=== PATIENT | female | born 1970 | race Caucasian/White ===

== ENCOUNTER 2016-11-27 08:34 | Day surgery (SDC) | payer OTHER ==
--- NOTE | 2016-11-27 07:09 | History and Physical Report ---
DATE OF EVALUATION: 11/27/2016. CHIEF COMPLAINT AND HISTORY OF CHIEF COMPLAINT: This patient presents with a history of intractable cervical radiculitis. On 10/28/2016 a spinal cord stimulator trial was conducted with up to 75 to 85% pain control. Due to the failure of all therapies and the success of the trial she presents today for implantation of a permanent system. PAST MEDICAL HISTORY: Hypertension, cerebrovascular disease, coronary artery disease. REVIEW OF SYSTEMS: The patient is appropriate and in no acute distress. The remainder of the systems review shows glasses, headaches, blood pressure problems, reflux, degenerative arthritis, depression. SOCIAL HISTORY: Noncontributory. FAMILY HISTORY: Cancer, hypertension. PAST SURGICAL HISTORY: None identified. ALLERGIES: To be provided. MEDICATIONS ON ADMISSION: To be provided. PHYSICAL EXAMINATION: General: Height and weight are not known. Vital Signs: Unavailable. HEENT: Within normal limits. Lungs: Clear. Heart: Regular rate and rhythm. Abdomen: Nontender. Musculoskeletal: Examination of the musculoskeletal system shows diffuse tenderness throughout the cervical spine extending into both shoulders and arms. Grasp and care attendant strength is intact. Neurologic: Cranial nerves are intact. IMPRESSION: CERVICAL RADICULITIS, ICD10 CODE M54.13. PLANS: The patient is here for implantation of a permanent spinal cord stimulator based upon a successful trial. All of the potential risks, side effects, and complications have been carefully reviewed and discussed including nerve root injury, dural puncture, and spinal cord injury. The procedure will be considered outpatient, although an overnight stay will be evaluated. Jose Rosales D.O. Date Time JOB NUMBER: [id number] cc: Emily Das
[~2016-11-27 08:34] MED LIST: ACETAMINOPHEN 1000MG/100 ML PREMIX IV ONE; CEFAZOLIN 2 Gram 50 ML IVPB ONE; FAMOTIDINE 20MG TABLET PO ONE; MECLIZINE 25 MG TABLET PO ONE; METOCLOPRAMIDE 10 MG TABLET PO ONE
[2016-11-27] MEDS ORDERED: MIDAZOLAM HCL 2MG/2ML VIAL IV ONE (14:00)
[2016-11-27] MEDS ORDERED: FENTANYL PF 100MCG/2ML VIAL IV ONE (14:00)
[2016-11-27] MEDS ORDERED: LIDOCAINE 2% MDV (20MG/ML) 20ML VIAL IV ONE ×2 (14:00→15:12)
[2016-11-27] MEDS ORDERED: PROPOFOL 10 MG/ML VIAL IV ONE (14:00)
[2016-11-27] MEDS ORDERED: LABETALOL HCL 5MG/ML, 20ML VIAL SIVP ONE (14:00)
[2016-11-27] MEDS ORDERED: HYDROMORPHONE HCL 2 MG/ML VIAL IV ONE (14:00)
[2016-11-27] MEDS ORDERED: METOCLOPRAMIDE HCL 10 MG/2 ML VIAL IVP PRN (14:07)
[2016-11-27] MEDS ORDERED: DIPHENHYDRAMINE HCL 25 MG CAPSULE PO PRN ×2 (14:07)
[2016-11-27] MEDS ORDERED: SENNOSIDES/DOCUSATE SODIUM UD CAPSULE PO PRN ×2 (14:07)
[2016-11-27] MEDS ORDERED: HYDROMORPHONE HCL 1 MG/ML CPJ IM PRN (14:07)
[2016-11-27] MEDS ORDERED: ACETAMINOPHEN 325 MG TAB PO PRN ×2 (14:07)
[2016-11-27] MEDS ORDERED: OXYCODONE/APAP 10MG-325MG TABLET PO PRN ×2 (14:07)
[2016-11-27] MEDS ORDERED: METOCLOPRAMIDE 10 MG TABLET PO PRN (14:07)
[2016-11-27] MEDS ORDERED: HYDROMORPHONE HCL 2 MG/ML VIAL IM PRN (14:07)
[2016-11-27] MEDS ORDERED: TEMAZEPAM 15 MG CAPSULE PO PRN ×2 (14:07)
[2016-11-27] MEDS ORDERED: DIPHENHYDRAMINE HCL IV 50 MG/ML VIAL IVP PRN ×2 (14:07)
[2016-11-27] MEDS ORDERED: HYDROCODONE/APAP 7.5/325MG TABLET PO PRN ×2 (14:07)
[2016-11-27] MEDS ORDERED: AL HYDROX/MAG HYDROX 30ML UD PO PRN (14:07)
[2016-11-27] MEDS ORDERED: BUPIVACAINE 0.5% W/EPI MPF 30 ML VIAL IVP ONE (15:12)
[2016-11-27] MEDS ORDERED: CEFAZOLIN 1G VIAL IM ONE (15:12)
[2016-11-27] MEDS ORDERED: CEFAZOLIN 2 Gram 50 ML IVPB SCH (18:15)
[2016-11-27] MEDS ORDERED: 0.9 % SODIUM CHLORIDE 10ML SYR IVP SCH (22:00)
--- NOTE | 2016-12-03 14:21 | RADIOLOGY REPORT ---
EXAM: CERVICOTHORACIC SPINE HISTORY: POST STIMULATOR IMPLANT. TECHNIQUE: AP views of the cervical and thoracic spine were obtained. Comparison: Cervical spine 11/06/16, thoracic spine 04/19/16. FINDINGS: There is a battery pack overlying the right upper quadrant of the abdomen with associated wires extending up to the upper cervical region at the approximate C2 level. Mild thoracic curve to the right. IMPRESSION: WIRES EXTEND UP TO THE C2 LEVEL. JOB NUMBER: [id number] MTDD
--- NOTE | 2016-12-04 16:30 | Operative Note ---
DATE OF SURGERY: 11/27/2016 PREOPERATIVE DIAGNOSIS: Intractable cervical radiculitis, ICD10 code M54.13. OPERATION: 1. Fluoroscopic-guided epidural access right T1-2, placement of spinal cord stimulator lead 1, a [employer] Infinion 16, 6 electrodes positioned left C2. 2. Fluoroscopic-guided epidural access right T2-3, placement of spinal cord stimulator lead 2, a [employer] Infinion 16, 6 electrodes positioned right C2. 3. Complex programming of lead 1, 20 minutes. 4. Complex programming of lead 2 over 20 minutes. 5. Incision, subdissection, and anchoring of lead 1 and lead 2 to deep fascia using nonabsorbable suture and a [employer] locking anchor. 6. Incision, subdissection, and creation of subcutaneous pouch right posterior gluteal margin for placement of generator identified as [employer] programmable rechargeable. 7. Tunneling between pouches, placement of external portion of lead 1 and lead 2 into generator pouch, each lead interfaced with bifurcate extension, each bifurcate extension interfaced with generator. 8. Placement of generator pouch secured to posterior fascia with nonabsorbable suture. Closure of both incisions with Vicryl for fascia running subcuticular, Vicryl for skin Dermabond closure. 9. Complex recovery room programming internal generator home use 2 stimulators 20 minutes. Surgeon: Jose Rosales DO Anesthesia: Local sedation. Anesthesia Provider: Jason House CRNA Indication: The patient presents with a history of intractable cervical radiculitis. Due to the failure of all therapies and success with stimulator trial, she presents today for implantation of a permanent system. PROCEDURE: Intravenous line, vital sign monitoring, IV sedation. Prepped, draped, sterile technique, under imaging, patient prone. The epidural interspace right of the midline at T1-2 and T2-3 was infiltrated with local. Two epidural needles with loss of resistance into the space. At T1-2, spinal cord stimulator lead 1, a [employer] Infinion 16, 6 electrodes positioned left of C2. Similar access at T2-3 spinal cord stimulator lead 2. A [employer] Infinion 16, 6 electrodes positioned right of C2. Complex programming of lead 1 over 20 minutes, complex programming of lead 2 over 20 minutes resulting in pattern stimulation to all the appropriate areas across the neck and shoulders. Patient indicating where all the areas were of pain. She was given the option to implant, continue to program, or remove. She opted to implant. Question was repeated with the same response. The skin above and below both needles was infiltrated. Incision was made and subcutaneous dissection was conducted to the supraspinous fascia. Each lead was then anchored to deep fascia with an anchoring device nonabsorbable suture, a [employer] locking anchor. At the right posterior gluteal margin or a site picked by the patient for the generator, skin infiltrated, incision made, and subcutaneous dissection was conducted to form pouch of suitable size for the generator identified as a [employer] programmable rechargeable. A tunneling tool was used to carry the leads into the generator pouch, and then each lead was interfaced with the bifurcate extension. Each bifurcate extension was interfaced with the generator. Antibiotic irrigation and Bovie for hemostasis. The generator was then placed into the pouch and secured to the fascia with nonabsorbable suture. The leads were placed into their own pouch and then both incisions were closed with Vicryl for fascia and a running subcuticular Vicryl for skin; Dermabond closure system approximating the edges of the wound. She was transported to the recovery room stable, showing no side effects from the procedure or the sedation. When fully awake and alert, complex programming of the generator was performed in the recovery room reestablishing stimulation and pain control to all the appropriate areas. She was instructed on the use of this system, provided with information on error messaging and then prepared for discharge. DISCHARGE INSTRUCTIONS: 1. The sites will remain clean and dry. No showering or bathing in any way that would disrupt dressings although the Dermabond will allow showering in the next 24-48 hours. 2. Standard medications resumed including antibiotic Levaquin 500 mg once a day for 14 days. If she has a problem with the antibiotic, she should contact the clinic for further antibiotic provision. 3. Number to contact with problems given. She will be seen in the office in the next 3-5 days. The office will contact the patient. Jose Rosales DO CC: Andrey Mcdonald M.D. PRO
== END 2016-11-27 15:45 | disposition home or self-care (01) ==
LOC: SUR 08:34 → MEDSURG 12:29 → SUR 15:45
PROVIDERS: ATTEND Pain Medicine Interventional Pain Medicine
DX: M54.13 Radiculopathy, cervicothoracic region (principal); I10 Essential (primary) hypertension; Z79.01 Long term (current) use of anticoagulants; E78.00 Pure hypercholesterolemia, unspecified
CPT/HCPCS: 72020; 95972; J0690

== ENCOUNTER 2016-12-16 11:38 | Emergency (ER) | payer OTHER ==
--- NOTE | 2016-12-16 13:02 | Emergency Department Record ---
History of Present Illness - General Chief Complaint: Abdominal Pain Stated Complaint: gallbladder Time Seen by Provider: 12/16/16 12:46 Source: Patient, RN notes reviewed Mode of Arrival: Ambulatory - History of Present Illness Initial Comments: epigastric abd pain and upper quad pains for 4 weeks and over the last 4 days it was much worse and she presented to ED and sent her to the ED. Food is making it worse. most foods. history of gall stones about one year ago. US at [facility] Complaint: Abdominal pain Onset/Timin -: Week(s) Location: RUQ Migration to: No migration Severity: Mild Quality: Fullness Consistency: Intermittent Improves With: Nothing Worsens With: Nothing Associated Symptoms: Nausea - Related Data LMP (females 10-50): Unknown Patient : No Home Medications Medication Instructions Recorded Confirmed Last Taken Carvedilol [Coreg] 6.25 mg PO BID 12/16/16 12/16/16 12/16/16 Ergocalciferol (Vitamin D2) 50,000 unit PO WEEKLY 12/16/16 12/16/16 Unknown [Vitamin D2] Hydrochlorothiazide [Hctz 25Mg] 25 mg PO ASDIR PRN 12/16/16 12/16/16 Unknown Lisinopril 20 mg PO DAILY 12/16/16 12/16/16 12/16/16 Rosuvastatin Calcium [Crestor] 40 mg PO QHS 12/16/16 12/16/16 12/15/16 Sertraline HCl [Zoloft] 100 mg PO DAILY 12/16/16 12/16/16 12/15/16 Ticagrelor [Brilinta] 90 mg PO BID 12/16/16 12/16/16 12/16/16 Topiramate [Trokendi Xr] 100 mg PO DAILY 12/16/16 12/16/16 12/16/16 Allergies Allergy/AdvReac Type Severity Reaction Status Date / Time aspirin AdvReac DIARRHEA Verified 12/16/16 12:43 azithromycin [From Zithromax] AdvReac DIARRHEA Verified 12/16/16 12:43 clopidogrel bisulfate AdvReac DIARRHEA Verified 12/16/16 12:43 [From Plavix] Travel Screening - Travel/Exposure Within Last 30 Days Have you traveled within the last 30 days?: No - Travel/Exposure Within Last Year Have you traveled outside the [place] in the last year?: No - Additonal Travel Details Have you been exposed to anyone with a communicable illness?: No - Travel Symptoms Symptom Screening: None Review of Systems Reviewed: No additional complaints except as noted below Constitutional: Reports: As per HPI. Denies: Chills, Fever, Malaise, Night sweats, Weakness, Weight change Eyes: Reports: As per HPI. Denies: Eye discharge, Eye pain, Photophobia, Vision change ENT: Reports: As per HPI. Denies: Congestion, Dental pain, Ear pain, Epistaxis , Hearing loss, Throat pain Respiratory: Reports: As per HPI. Denies: Cough, Dyspnea, Hemoptysis, Stridor, Wheezes Cardiovascular: Reports: As per HPI. Denies: Arrhythmia, Chest pain, Dyspnea on exertion, Edema, Murmurs, Orthopnea, Palpitations, Paroxysmal nocturnal dyspnea, Rheumatic Fever, Syncope Endocrine: Reports: As per HPI. Denies: Fatigue, Heat or cold intolerance, Polydipsia, Polyuria Gastrointestinal: Reports: As per HPI, Abdominal pain, Diarrhea, Nausea. Denies : Constipation, Hematemesis, Hematochezia, Melena, Vomiting Genitourinary: Reports: As per HPI. Denies: Abnormal menses, Discharge, Dyspareunia, Dysuria, Frequency, Hematuria, Incontinence, Retention, Urgency Musculoskeletal: Reports: As per HPI. Denies: Arthralgia, Back pain, Gout, Joint swelling, Myalgia, Neck pain Skin: Reports: As per HPI. Denies: Bruising, Change in color, Change in hair/ nails, Lesions, Pruritus, Rash Neurological: Reports: As per HPI. Denies: Abnormal gait, Confusion, Headache, Numbness, Paresthesias, Seizure, Tingling, Tremors, Vertigo, Weakness Psychiatric: Reports: As per HPI. Denies: Anxiety, Auditory hallucinations, Depression, Homicidal thoughts, Suicidal thoughts, Visual hallucinations Hematological/Lymphatic: Reports: As per HPI. Denies: Anemia, Blood Clots, Easy bleeding, Easy bruising, Swollen glands Past Medical History - SOCIAL HISTORY Smoking Status: Former smoker Alcohol Use: None Drug Use: None - RESPIRATORY Hx Respiratory Disorders: No - CARDIOVASCULAR Hx Cardio Disorders: Yes Hx Abnormal EKG: Yes Hx Cardiac Cath: Yes Hx Edema: Yes (occass usually in the summer) Hx Heart Attack: Yes (x's 2 2010 and 2014 no permanent damage) Hx Hypertension: Yes (on meds good control) Hx Coronary Artery Disease: Yes Hx Coronary Stent: Yes (x's 4) - NEURO Hx Neuro Disorders: Yes Hx of Migraines: Yes (on meds good control) Hx Neuropathy: Yes (hands and arms from neck) Hx TIA: Yes (sees neuroligist some scarring noted nothing new) - GI Hx GI Disorders: Yes Hx Abdominal Pain: Yes Hx Reflux: Yes (on meds good control) - Hx Genitourinary Disorders: No Comment:: no period since ablation 2 years ago - ENDOCRINE Hx Endocrine Disorders: No - MUSCULOSKELETAL Hx Musculoskeletal Disorders: Yes Hx Arthritis: Yes (RA, osteo, DDD) Hx Fibromyalgia: Yes - PSYCH Hx Psych Problems: Yes Hx Anxiety: Yes Hx Depression: Yes - HEMATOLOGY/ONCOLOGY Hx Hematology/Oncology Disorders: No Family Medical History Any Significant Family History?: No Hx Heart Disease: Father Hx HTN: Mother Physical Exam - General General Appearance: Alert, Oriented x3, Cooperative, No acute distress - Head Head exam: Normal inspection - Eye Eye exam: Normal appearance, PERRL Pupils: Normal accommodation - ENT ENT exam: Normal exam, Mucous membranes moist, Normal external ear exam, Normal orophraynx, TM's normal bilaterally Ear exam: Normal external inspection. negative: External canal tenderness Nasal Exam: Normal inspection. negative: Discharge, Sinus tenderness Mouth exam: Normal external inspection, Tongue normal Teeth exam: Normal inspection. negative: Dental caries Throat exam: Normal inspection. negative: Tonsillar erythema, Tonsillar exudate - Neck Neck exam: Normal inspection, Full ROM. negative: Tenderness - Respiratory Respiratory exam: Normal lung sounds bilaterally. negative: Respiratory distress - Cardiovascular Cardiovascular Exam: Regular rate, Normal rhythm, Normal heart sounds - GI/Abdominal GI/Abdominal exam: Soft, Normal bowel sounds. negative: Tenderness - Rectal Rectal exam: Deferred - exam: Deferred - Extremities Extremities exam: Normal inspection, Full ROM, Normal capillary refill. negative: Tenderness - Back Back exam: Reports: Normal inspection, Full ROM. Denies: Muscle spasm, Rash noted, Tenderness - Neurological Neurological exam: Alert, Normal gait, Oriented X3, Reflexes normal - Psychiatric Psychiatric exam: Normal affect, Normal mood - Skin Skin exam: Dry, Intact, Normal color, Warm Course Vital Signs 12/16/16 12:50 Temperature 98.4 F Pulse Rate 77 Respiratory 20 Rate Blood Pressure 148/79 Pulse Ox 99 - Reevaluation(s) Reevaluation #1: GI cocktail helped 12/16/16 14:57 Reevaluation #2: patient tells me she is on nexium and that is not on her her medication list will ask the nurse to add it. 12/16/16 15:00 Medical Decision Making - Lab Data Result diagrams: 12/16/16 13:20 12/16/16 13:20 Disposition Clinical Impression: Gastritis Qualifiers: Gastritis type: unspecified gastritis Chronicity: acute Gastritis bleeding: without bleeding Qualified Code(s): K29.00 - Acute gastritis without bleeding Disposition: Home, Self-Care Condition: (1) Good Instructions: Gastritis (ED) Additional Instructions: follow up with Dr. Diaz galo after meals and bedtime Forms: Patient Portal Access Time of Disposition: 15:01
[2016-12-16] MEDS ORDERED: MAGNESIUM HYDROXIDE/AL HYDROX 30 ML, LIDOCAINE VISC 2% 200 MG PO ONE ×2 (13:07)
[2016-12-16 13:24] LABS: BASO % 0.2 % (0-6); EOS % 1.6 % (0-6); GRAN % 55.1 % (47-80); HEMOGLOBIN 13.5 gm/dl (11.6-16.0); LYMPH % 35.6 % (16-45); MEAN CORPUSCULAR HEMOGLOBIN 26.7 pg (27-33); MEAN CORPUSCULAR HGB CONC 32.9 g/dl (32-36); MEAN PLATELET VOLUME 11.2 fl (7.4-10.4); MONO % 7.5 % (0-9); PLATELET COUNT 280 K/uL (130-400); RED BLOOD COUNT 5.06 M/uL (3.80-5.40); RED CELL DISTRIBUTION WIDTH 14.4 % (11.5-14.5); WHITE BLOOD COUNT W/O DIFF 8.3 K/uL (4.2-12.2)
[2016-12-16 13:36] LABS: ALBUMIN 4.4 gm/dL (3.5-5.0); ALKALINE PHOSPHATASE 96 U/L (38-126); ALT/SGPT 51 U/L (9-52); ANION GAP 8.5 (7-16); AST/SGOT 46 U/L (14-36); BILIRUBIN,TOTAL 0.45 mg/dL (0.2-1.3); BLOOD UREA NITROGEN 9 mg/dL (7-17); CARBON DIOXIDE 21.5 mmol/L (22-30); CREATININE 0.7 mg/dL (0.52-1.04); EST GLOMERULAR FILTRATION RATE > 60 ml/min; GLUCOSE,RANDOM 93 mg/dL (70-110); LIPASE 110 U/L (23-300); TOTAL PROTEIN 7.8 gm/dL (6.3-8.2)
[2016-12-16 14:27] LABS: URINE APPEARANCE CLEAR; URINE BILIRUBIN NEGATIVE (NEGATIVE); URINE BLOOD NEGATIVE (NEGATIVE); URINE COLOR YELLOW; URINE GLUCOSE (UA) NEGATIVE (NEGATIVE); URINE KETONE NEGATIVE (NEGATIVE); URINE LEUKOCYTE ESTERASE NEGATIVE (NEGATIVE); URINE NITRITE NEGATIVE (NEGATIVE); URINE PROTEIN NEGATIVE (NEGATIVE); URINE UROBILINOGEN 0.2 E.U./dL (0.20 - 1.00)
== END 2016-12-16 15:11 | disposition home or self-care (01) ==
LOC: ER 11:38
DX: K29.00 Acute gastritis without bleeding (principal); R10.11 Right upper quadrant pain; R11.0 Nausea
CPT/HCPCS: 80048; 80076; 81003; 83690; 85025; 99283